=== PATIENT | female | born 1965 | race Two or more races ===

== ENCOUNTER 2020-10-06 16:14 | Emergency (ER) | payer OTHER, MEDICAID ==
[~2020-10-06] VITALS: Ht 152.4 cm; Wt 72.1 kg
[2020-10-06 16:28] VITALS: BP_SYST 120
[2020-10-06 17:09] LABS: BASOPHILS % (AUTO) 0.8 % (0.0-2.0); EOSINOPHILS # (AUTO) 0.1 K/uL (0.0-0.4); EOSINOPHILS % (AUTO) 1.2 % (0.0-4.0); HEMOGLOBIN 7.1 g/dL (12.0-16.0); LYMPHOCYTES # (AUTO) 1.3 K/uL (1.0-5.5); LYMPHOCYTES % (AUTO) 24.9 % (20.5-51.5); MEAN CORPUSCULAR HEMOGLOBIN 34 pg (27-31); MEAN CORPUSCULAR HGB CONC 34 % (32-36); MEAN CORPUSCULAR VOLUME 99 fL (79.0-98.0); MONOCYTES # (AUTO) 0.3 K/uL (0.0-1.0); MONOCYTES % (AUTO) 6.5 % (1.7-9.3); NEUTROPHILS # (AUTO) 3.5 K/uL (1.8-7.7); NEUTROPHILS % (AUTO) 66.6 % (40.0-70.0); PLATELET COUNT (AUTO) 254 K/uL (130-430); RED BLOOD CELL COUNT(AUTO) 2.09 MIL/uL (4.2-6.2); WHITE BLOOD COUNT (AUTO) 5.2 K/uL (4.8-10.8)
[2020-10-06 17:11] LABS: PROTHROMBIN TIME 10.1 SECS (9.5-12.5)
[2020-10-06 17:14] LABS: HEMATOCRIT 20.7 % (36-48)
[2020-10-06 17:20] LABS: RETICULOCYTE COUNT 4.9 % (0.5-1.5)
[2020-10-06 17:38] LABS: CALCIUM 8.5 mg/dL (8.4-11.0); CREATININE 0.86 mg/dL (0.55-1.30); POTASSIUM 3.7 mmol/L (3.5-5.1)
[2020-10-06 17:43] LABS: ALBUMIN 3.4 g/dL (3.4-4.8); TOTAL BILIRUBIN 0.1 mg/dL (0.0-1.0)
[2020-10-06] MEDS ORDERED: FERR236T3 PO (17:48)
[2020-10-07 00:03] VITALS: BP_SYST 98
== END 2020-10-07 00:03 | disposition home or self-care (01) ==
LOC: SED 16:14
DX: D64.9 Anemia, unspecified (principal); Z88.1 Allergy status to other antibiotic agents
CPT/HCPCS: 36415; 36430; 80053; 84703; 85025; 85044; 85610; 85730; 86886; 86900; 86901; 86920; 99285; P9021

== ENCOUNTER 2020-10-09 15:26 | Emergency (ER) | payer OTHER, MEDICAID ==
[~2020-10-09] VITALS: Ht 152.4 cm; Wt 71.2 kg
[~2020-10-09 15:26] MED LIST: FERR236T3 PO
[2020-10-09 15:36] VITALS: BP_SYST 100
[2020-10-09 15:55] LABS: BASOPHILS # (AUTO) 0.1 K/uL (0.0-0.2); BASOPHILS % (AUTO) 0.9 % (0.0-2.0); EOSINOPHILS # (AUTO) 0.1 K/uL (0.0-0.4); EOSINOPHILS % (AUTO) 2.4 % (0.0-4.0); HEMATOCRIT 27.1 % (36-48); HEMOGLOBIN 9.3 g/dL (12.0-16.0); LYMPHOCYTES # (AUTO) 1.8 K/uL (1.0-5.5); LYMPHOCYTES % (AUTO) 30.7 % (20.5-51.5); MEAN CORPUSCULAR HEMOGLOBIN 33 pg (27-31); MEAN CORPUSCULAR HGB CONC 34 % (32-36); MEAN CORPUSCULAR VOLUME 97 fL (79.0-98.0); MONOCYTES # (AUTO) 0.4 K/uL (0.0-1.0); NEUTROPHILS # (AUTO) 3.6 K/uL (1.8-7.7); PLATELET COUNT (AUTO) 322 K/uL (130-430); RED CELL DISTRIBUTION WIDTH 13.9 % (9.0-15.0)
[2020-10-09 16:24] LABS: CALCIUM 8.5 mg/dL (8.4-11.0); CREATININE 0.86 mg/dL (0.55-1.30); POTASSIUM 3.7 mmol/L (3.5-5.1)
[2020-10-09 16:29] LABS: ALBUMIN 3.5 g/dL (3.4-4.8); TOTAL BILIRUBIN 0.1 mg/dL (0.0-1.0)
[2020-10-09 17:54] VITALS: BP_SYST 100
== END 2020-10-09 17:54 | disposition home or self-care (01) ==
LOC: SED 15:26
DX: D64.9 Anemia, unspecified (principal); Z88.5 Allergy status to narcotic agent
CPT/HCPCS: 36415; 80053; 85025; 99283

== ENCOUNTER 2022-08-09 13:44 | Emergency (ER) | payer MEDICAID, OTHER ==
[~2022-08-09] VITALS: Ht 154.9 cm; Wt 72.6 kg
[2022-08-09 14:20] VITALS: BP_SYST 131
--- NOTE | 2022-08-09 14:20 | NUR ---
ER Dr. GARCIA at bedside examining patient.
--- NOTE | 2022-08-09 14:20 | NUR ---
PT BIB SIGNIFICANT OTHER, AMBULATED TO BED 4. PT IS A&OX4, C/O ABDOMINAL PAIN. PT STATES PAIN 4/10. PT STATES PAIN STARTS AT UPPER ABDOMINAL AND RADITATES TO BILATERAL FLANKS. PT STATES SHE HAS A HISTORY OF KIDNEY STONES. PT STATES PT DENIES V/N. PT DENIES PAIN WHEN URINATING. PT STATES LAST BOWEL MOVEMENT WAS TODAY AT 1030. WILL CONTINUE TO MONITOR AND ASSESS.
[2022-08-09] MEDS ORDERED: MAG HYDROX/AL HYDROX/SIMETH 30 ML, DICYCLOMINE HCL 20 MG, LIDOCAINE VISCOUS 2% 15ML (PO... PO ONE ×3 (14:30)
[2022-08-09 14:40] LABS: BILIRUBIN,URINE NEGATIVE (NEGATIVE); BLOOD, URINE NEGATIVE (NEGATIVE); CLARITY/URINE CLEAR (CLEAR); COLOR,URINE YELLOW (YELLOW); GLUCOSE,URINE NEGATIVE (NEGATIVE); KETONES,URINE NEGATIVE (NEGATIVE); LEUKOCYTE ESTERASE ,URINE NEGATIVE (NEGATIVE); NITRITE, URINE NEGATIVE (NEGATIVE); PROTEIN URINE NEGATIVE (NEGATIVE); UROBILINOGEN,URINE 0.2 (0.2-1.0)
[2022-08-09 15:04] LABS: BASOPHILS % (AUTO) 0.6 % (0.0-2.0); EOSINOPHILS # (AUTO) 0.2 K/uL (0.0-0.4); EOSINOPHILS % (AUTO) 2.7 % (0.0-4.0); HEMATOCRIT 36.1 % (36-48); HEMOGLOBIN 12.7 g/dL (12.0-16.0); LYMPHOCYTES # (AUTO) 1.8 K/uL (1.0-5.5); LYMPHOCYTES % (AUTO) 32.2 % (20.5-51.5); MEAN CORPUSCULAR HEMOGLOBIN 34 pg (27-31); MEAN CORPUSCULAR HGB CONC 35 % (32-36); MEAN CORPUSCULAR VOLUME 95 fL (79.0-98.0); MONOCYTES # (AUTO) 0.4 K/uL (0.0-1.0); MONOCYTES % (AUTO) 7.4 % (1.7-9.3); NEUTROPHILS # (AUTO) 3.2 K/uL (1.8-7.7); NEUTROPHILS % (AUTO) 57.1 % (40.0-70.0); PLATELET COUNT (AUTO) 188 K/uL (130-430); RED BLOOD CELL COUNT(AUTO) 3.78 MIL/uL (4.2-6.2); RED CELL DISTRIBUTION WIDTH 12.9 % (9.0-15.0); WHITE BLOOD COUNT (AUTO) 5.6 K/uL (4.8-10.8)
[2022-08-09 15:09] LABS: CALCIUM 9.3 mg/dL (8.4-11.0); CREATININE 0.66 mg/dL (0.55-1.30)
--- NOTE | 2022-08-09 15:10 | NUR ---
PT TAKEN OFF MONITOR AND TRANSFERRED TO CT VIA WHEELCHAIR AT THIS TIME.
[2022-08-09 15:13] LABS: ALBUMIN 3.7 g/dL (3.4-4.8); TOTAL BILIRUBIN 0.2 mg/dL (0.0-1.0)
--- NOTE | 2022-08-09 15:20 | NUR ---
PT RETURNED FROM CT VIA WHEELCHAIR.
--- NOTE | 2022-08-09 16:08 | NUR ---
Dr Flaherty at bedside discussing plan of care.
[2022-08-09] MEDS ORDERED: FAMO-132 PO (16:10)
--- NOTE | 2022-08-09 16:24 | NUR ---
Patient given written and verbal discharge instructions and verbalizes understanding. ER Dr Flaherty discussed with patient the results and treatment provided. Patient in stable condition. ID arm band removed. Rx of Pepcid given. Patient educated on pain management and to follow up with PMD. Pain Scale 0/10. Opportunity for questions provided and answered. Medication side effect fact sheet provided.
[2022-08-09 16:28] VITALS: BP_SYST 103
== END 2022-08-09 16:24 | disposition home or self-care (01) ==
LOC: SED 13:44
DX: K29.00 Acute gastritis without bleeding (principal); R10.13 Epigastric pain; Z88.1 Allergy status to other antibiotic agents; Z79.899 Other long term (current) drug therapy
CPT/HCPCS: 99284; 74176; 80053; 83690; 85025; 36415; 76376; 81003; J2001

== ENCOUNTER 2022-11-15 12:32 | Emergency (ER) | payer MEDICAID ==
[~2022-11-15] VITALS: Ht 152.4 cm; Wt 73.5 kg
[2022-11-15 12:32] VITALS: BP_SYST 150
[~2022-11-15 12:32] MED LIST changes: +FAMO-132 PO
[2022-11-15 13:17] LABS: BASOPHILS % (AUTO) 0.9 % (0.0-2.0); EOSINOPHILS # (AUTO) 0.1 K/uL (0.0-0.4); HEMATOCRIT 40.5 % (36-48); HEMOGLOBIN 13.7 g/dL (12.0-16.0); LYMPHOCYTES # (AUTO) 1.9 K/uL (1.0-5.5); LYMPHOCYTES % (AUTO) 34.9 % (20.5-51.5); MEAN CORPUSCULAR HEMOGLOBIN 33 pg (27-31); MEAN CORPUSCULAR HGB CONC 34 % (32-36); MEAN CORPUSCULAR VOLUME 96 fL (79.0-98.0); MONOCYTES # (AUTO) 0.4 K/uL (0.0-1.0); MONOCYTES % (AUTO) 6.7 % (1.7-9.3); NEUTROPHILS % (AUTO) 55.5 % (40.0-70.0); PLATELET COUNT (AUTO) 222 K/uL (130-430); RED CELL DISTRIBUTION WIDTH 13.1 % (9.0-15.0); WHITE BLOOD COUNT (AUTO) 5.4 K/uL (4.8-10.8)
[2022-11-15 13:30] LABS: ANION GAP 7 (5-15); CALCIUM 9.1 mg/dL (8.4-11.0); CHLORIDE 103 mmol/L (98-107); CREATININE 0.74 mg/dL (0.55-1.30); GFR AFRICAN AMERICAN 104 mL/min (>90); GLUCOSE 94 mg/dL (70-99); UREA NITROGEN, BLOOD 17 mg/dL (8-21)
[2022-11-15 13:36] LABS: ALANINE AMINOTRANSFERASE 27 U/L (12-78); ALBUMIN 4.1 g/dL (3.4-4.8); ASPARTATE AMINOTRANSFERASE 20 U/L (10-37); TOTAL BILIRUBIN 0.4 mg/dL (0.0-1.0)
[2022-11-15] MEDS ORDERED: ALPR0.5T PO (14:23)
[2022-11-15 14:44] VITALS: BP_SYST 150
== END 2022-11-15 14:45 | disposition home or self-care (01) ==
LOC: SED 12:32
DX: F41.9 Anxiety disorder, unspecified (principal); R53.1 Weakness; R20.2 Paresthesia of skin; R06.02 Shortness of breath; Z88.0 Allergy status to penicillin; Z88.1 Allergy status to other antibiotic agents; Z79.899 Other long term (current) drug therapy
CPT/HCPCS: 36415; 71045; 80053; 82550; 84484; 85025; 93005; 99285

== ENCOUNTER 2023-02-05 13:42 | Emergency (ER) | payer MEDICAID ==
[~2023-02-05] VITALS: Ht 152.4 cm; Wt 74.4 kg
[~2023-02-05 13:42] MED LIST changes: +ALPR0.5T PO
[2023-02-05 13:45] VITALS: BP_SYST 108; PULSE 62; RESP 18; TEMP 97.8; O2SAT 98
[2023-02-05 16:16] LABS: BILIRUBIN,URINE NEGATIVE (NEGATIVE); BLOOD, URINE 3+ (NEGATIVE); CLARITY/URINE CLEAR (CLEAR); COLOR,URINE YELLOW (YELLOW); GLUCOSE,URINE NEGATIVE (NEGATIVE); KETONES,URINE NEGATIVE (NEGATIVE); LEUKOCYTE ESTERASE ,URINE NEGATIVE (NEGATIVE); NITRITE, URINE NEGATIVE (NEGATIVE); PROTEIN URINE NEGATIVE (NEGATIVE); UROBILINOGEN,URINE 0.2 (0.2-1.0)
[2023-02-05 16:46] LABS: BACTERIA,URINE RARE /HPF (None Seen); MUCUS,URINE None Seen /LPF (None Seen); WBC,URINE 0-3 /HPF (0-3)
[2023-02-05 17:00] LABS: BASOPHILS % (AUTO) 0.7 % (0.0-2.0); EOSINOPHILS # (AUTO) 0.1 K/uL (0.0-0.4); EOSINOPHILS % (AUTO) 2.1 % (0.0-4.0); HEMOGLOBIN 13.3 g/dL (12.0-16.0); LYMPHOCYTES # (AUTO) 1.5 K/uL (1.0-5.5); LYMPHOCYTES % (AUTO) 30.5 % (20.5-51.5); MEAN CORPUSCULAR HEMOGLOBIN 33 pg (27-31); MEAN CORPUSCULAR HGB CONC 33 % (32-36); MEAN CORPUSCULAR VOLUME 98 fL (79.0-98.0); MONOCYTES # (AUTO) 0.3 K/uL (0.0-1.0); MONOCYTES % (AUTO) 5.6 % (1.7-9.3); NEUTROPHILS # (AUTO) 3.1 K/uL (1.8-7.7); NEUTROPHILS % (AUTO) 61.1 % (40.0-70.0); PLATELET COUNT (AUTO) 214 K/uL (130-430); RED BLOOD CELL COUNT(AUTO) 4.08 MIL/uL (4.2-6.2); RED CELL DISTRIBUTION WIDTH 12.9 % (9.0-15.0); WHITE BLOOD COUNT (AUTO) 5.1 K/uL (4.8-10.8)
[2023-02-05 17:14] LABS: CALCIUM 9.2 mg/dL (8.4-11.0); CREATININE 0.69 mg/dL (0.55-1.30)
[2023-02-05 17:19] LABS: ALBUMIN 4.1 g/dL (3.4-4.8); TOTAL BILIRUBIN 0.4 mg/dL (0.0-1.0)
[2023-02-05] MEDS ORDERED: POLY17PO4 PO (17:29)
[2023-02-05] MEDS ORDERED: KETOROLAC TROMETHAMINE 60 MG/2 ML VIAL IM ONE (17:30)
[2023-02-05] MEDS ORDERED: IBUP-1969 PO ×2 (17:31→19:50)
[2023-02-05] MEDS ORDERED: TAMS-11 PO (19:50)
[2023-02-05] MEDS ORDERED: HYDR-3927 PO (19:50)
[2023-02-06 00:42] VITALS: BP_SYST 119; PULSE 78; RESP 14; TEMP 98.1; O2SAT 98
== END 2023-02-06 00:42 | disposition home or self-care (01) ==
LOC: SED 13:42
DX: K59.00 Constipation, unspecified (principal); N23 Unspecified renal colic; M25.552 Pain in left hip; Z88.0 Allergy status to penicillin; Z88.1 Allergy status to other antibiotic agents; Z88.2 Allergy status to sulfonamides; Z79.899 Other long term (current) drug therapy
CPT/HCPCS: 99285; 74176; 80053; 81000; 85025; 36415; 74021; 76376; 96372; J1885

== ENCOUNTER 2023-02-10 11:41 | Inpatient (IN) | payer MEDICAID ==
[~2023-02-10] VITALS: Ht 152.4 cm; Wt 77.1 kg
[~2023-02-10 11:41] MED LIST changes: +HYDR-3927 PO; +IBUP-1969 PO; +POLY17PO4 PO; +TAMS-11 PO
[2023-02-10 11:53] VITALS: BP_SYST 118; PULSE 92; RESP 18; TEMP 98.3; O2SAT 98
--- NOTE | 2023-02-10 11:59 | NUR ---
RECEIVED PT FROM SHARAN NARAYANAN. PT TRIAGED AND PLACED IN BED 6. PT BIBS FROM HOME WITH C/O BACK AND SIDE PAIN, DENIES URINARY FREQUENCY, HEMITURIA, BUT STATES SHE HAS A HX OF KIDNEY STONES.
--- NOTE | 2023-02-10 12:00 | NUR ---
DR. MICHELLE AT BEDSIDE TO ASSESS PT.
[2023-02-10] MEDS ORDERED: KETOROLAC TROMETHAMINE 30 MG VIAL IVP ONE (12:30)
[2023-02-10] MEDS ORDERED: NACL 0.9% 1,000 ML IV ONE (12:30)
--- NOTE | 2023-02-10 12:39 | NUR ---
# 20 gauge angiocath placed to OAC. Use of asceptic technique. Opsite placed over site. Blood return noted. Blood for lab drawn from site. Flushed with 10 cc of normal saline. No evidence of infiltration noted. Patient tolerated well.
[2023-02-10 12:45] LABS: BILIRUBIN,URINE NEGATIVE (NEGATIVE); BLOOD, URINE 3+ (NEGATIVE); CLARITY/URINE CLEAR (CLEAR); COLOR,URINE YELLOW (YELLOW); GLUCOSE,URINE NEGATIVE (NEGATIVE); KETONES,URINE NEGATIVE (NEGATIVE); LEUKOCYTE ESTERASE ,URINE TRACE (NEGATIVE); NITRITE, URINE NEGATIVE (NEGATIVE); PH,URINE 5.5 (5.0-8.0); PROTEIN URINE 1+ (NEGATIVE); UROBILINOGEN,URINE 0.2 (0.2-1.0)
[2023-02-10 12:45] LABS: BASOPHILS # (AUTO) 0.1 K/uL (0.0-0.2); BASOPHILS % (AUTO) 0.9 % (0.0-2.0); EOSINOPHILS # (AUTO) 0.1 K/uL (0.0-0.4); EOSINOPHILS % (AUTO) 1.8 % (0.0-4.0); HEMATOCRIT 37.8 % (36-48); HEMOGLOBIN 12.5 g/dL (12.0-16.0); LYMPHOCYTES # (AUTO) 1.7 K/uL (1.0-5.5); LYMPHOCYTES % (AUTO) 20.8 % (20.5-51.5); MEAN CORPUSCULAR HEMOGLOBIN 33 pg (27-31); MEAN CORPUSCULAR HGB CONC 33 % (32-36); MEAN CORPUSCULAR VOLUME 98 fL (79.0-98.0); MONOCYTES # (AUTO) 0.6 K/uL (0.0-1.0); NEUTROPHILS # (AUTO) 5.5 K/uL (1.8-7.7); NEUTROPHILS % (AUTO) 68.5 % (40.0-70.0); PLATELET COUNT (AUTO) 206 K/uL (130-430); RED BLOOD CELL COUNT(AUTO) 3.86 MIL/uL (4.2-6.2); RED CELL DISTRIBUTION WIDTH 12.8 % (9.0-15.0); WHITE BLOOD COUNT (AUTO) 8.1 K/uL (4.8-10.8)
[2023-02-10 12:56] LABS: BACTERIA,URINE MODERATE /HPF (None Seen)
[2023-02-10 12:57] LABS: MUCUS,URINE 1+ /LPF (None Seen)
--- NOTE | 2023-02-10 12:57 | NUR ---
PLACED BEDSIDE COMMODE WITH PT FOR BATHROOM USE, PT IS TOO WEAK TO WALK TO RESTROOM
[2023-02-10 13:11] LABS: ALBUMIN 3.8 g/dL (3.4-4.8); CALCIUM 9.1 mg/dL (8.4-11.0); CREATININE 0.93 mg/dL (0.55-1.30); TOTAL BILIRUBIN 0.3 mg/dL (0.0-1.0)
[2023-02-10] MEDS ORDERED: MULT-1117 PO (13:40)
[2023-02-10] MEDS ORDERED: D5/0.45 NS 1,000 ML IV ONE (16:00)
--- NOTE | 2023-02-10 17:00 | NUR ---
Admit bed requested Patient will be admitted to care of . Admitted to MEDICAL SURGICAL unit. Diagnosis KIDNEY STONES Inpatient (Yes or No) YES Observation (Yes or No) NO Orientation concerns or request close to nursing station (Yes or No) NO Covid Status N/A On vent or bipap NO Isolation requirements NONE Needs a sitter NO From Home (Yes or if No enter name of facility) YES Requires Dialysis (Yes or No) NO Med Rec Completed (Yes of No) YES
--- NOTE | 2023-02-10 19:56 | NUR ---
Patient will be admitted to care of [facility]. Admitted to MED SURGE unit. Will go to room 110B. Belongings list completed. Complete and up to date summary report printed. SBAR report to be given at bedside with opportunity for questions.
[2023-02-10 20:05] VITALS: O2SAT 99
--- NOTE | 2023-02-10 20:05 | NUR ---
ADMIT NOTE Received pt from ER to the floor with a diagnosis of KIDNEY STONES. Received report from SHARAN Quinones. Admission process initiated. patient oriented to pain management, safety and call light-teach back done.
--- NOTE | 2023-02-10 20:15 | NUR ---
Initial RN notes Pt AAOx4, VSS, no distress noted. Pt denies pain at this time. IVF infusing L. AC20G clear and patent. Oriented to call light use. Bed low, locked, siderails up x2. To monitor.
[2023-02-10 22:08] VITALS: BP_SYST 97; PULSE 59; RESP 18; TEMP 97.2
--- NOTE | 2023-02-11 00:14 | NUR ---
Sarah GAMEZ Another RN mandie GAMEZ, spoke with MD for pain med order. Order for Toradol 30mg IVP Q4PRN received.
[2023-02-11] MEDS ORDERED: KETOROLAC TROMETHAMINE 30 MG VIAL IVP PRN (00:15)
[2023-02-11 00:28] VITALS: BP_SYST 113; PULSE 62; RESP 14; TEMP 96.8; O2SAT 96
--- NOTE | 2023-02-11 06:15 | NUR ---
Closing notes Pt asleep, easily awakens. No c/o pain or discomfort at this time. Pt voids in commode and straining urine, no stone noted. Call light within reach. To endorse to AM nurse.
[2023-02-11 08:00] VITALS: BP_SYST 112; PULSE 67; RESP 16; TEMP 97.6; O2SAT 97
--- NOTE | 2023-02-11 08:22 | NUR ---
CONSULTATION: REASON FOR CONSULT: KIDNEY STONES CONSULTING PHYSICIAN: Marianela CHANDRA ORDERED BY: Jameel JESSICA DR, NP IS AWARE OF CONSULT AND ALREADY SEEN THE PT [phone]
--- NOTE | 2023-02-11 08:48 | NUR ---
OPENING NOTES: PATIENT IN BED WITH EYES OPENED. RESPONDED TO NAME. PATIENT EXPRESSED CONCERN IN REGARDS TO HEALTH INSURANCE AND WANTING TO SPEAK WITH A [employer]ER.SPOKE WITH QUE FROM CASE MANAGEMENT IN PERSON ABOUT PATIENT CONCERNS. QUE SAID SHE WILL HAVE OLIVIA JOVEL TALK WITH HER. NO S/S OF DISTRESS OR PAIN NOTED. BREATHING IS EVEN AND UNLABORED ON RA. ALL NEEDS MET AT THIS TIME, SAFETY CHECKS MADE AND CALL LIGHT WITHIN REACH.
[2023-02-11] MEDS ORDERED: TAMSULOSIN HCL 0.4 MG CAP PO SCH (09:00)
--- NOTE | 2023-02-11 09:30 | NUR ---
OLIVIA met with patient at bedside per her request. She is asking for an in-network hospital transfer. She wants for her kidney stone to be removed. CM will contact and fax her clinicals to [facility] for further coordination.
[2023-02-11] MEDS ORDERED: ACETAMINOPHEN 325 MG TABLET PO PRN ×2 (10:45→11:30)
[2023-02-11] MEDS ORDERED: NALOXONE HCL 0.4 MG/ML AMP (NARCAN) IVP PRN ×2 (10:45)
[2023-02-11] MEDS ORDERED: HYDROcodone/ACETAMIN 10-325 MG TAB PO PRN (10:45)
[2023-02-11] MEDS ORDERED: HYDROcodone/ACETAMIN 5-325 MG TAB (NORCO/ VICODIN) PO PRN (10:45)
[2023-02-11] MEDS ORDERED: ONDANSETRON HCL 4 MG/2 ML VIAL IVP PRN (10:45)
[2023-02-11] MEDS ORDERED: LORazepam 2 MG/ML VIAL IVP PRN (10:45)
[2023-02-11] MEDS ORDERED: D5/0.45 NS 1,000 ML IV SCH (10:45)
[2023-02-11 12:00] VITALS: BP_SYST 109; PULSE 73; RESP 15; TEMP 98.3; O2SAT 98
[2023-02-11 12:31] VITALS: O2SAT 98
[2023-02-11 12:48] VITALS: BP_SYST 109; PULSE 73; RESP 15; TEMP 98.3; O2SAT 98
--- NOTE | 2023-02-11 13:35 | NUR ---
DISCHARGED PATIENT DISCHARGED HOME WITH ANU. PATIENT VERBALIZED UNDERSTANDING OFF D/C INSTRUCTIONS TO F/U WITH PCP AND UROLOGIST OUTPATIENT WELL MEDICATIONS.
--- NOTE | 2023-02-11 13:48 | NUR ---
CM had faxed clinicals and [facility]. No return phone call. CM left a with patient [phone] advising her of [facility] being the in [facility] to go to next time for services.
[2023-02-12] MEDS ORDERED: MULTIVITAMINS TAB 1 TABLET PO SCH (09:00)
[2023-02-12] MEDS ORDERED: FERROUS GLUCONATE 324 MG TABLET PO SCH (09:00)
== END 2023-02-11 13:40 | disposition home or self-care (01) | DRG 465 ==
LOC: SED 11:41 → SMU 15:59
PROVIDERS: ADMIT Preventive Medicine Preventive Medicine/Occupational Environmental Medicine; ATTEND Preventive Medicine Preventive Medicine/Occupational Environmental Medicine
DX: N13.2 Hydronephrosis with renal and ureteral calculous obstruction (principal); E87.1 Hypo-osmolality and hyponatremia; F41.9 Anxiety disorder, unspecified; Z88.0 Allergy status to penicillin; Z88.1 Allergy status to other antibiotic agents
CPT/HCPCS: 36415; 76376; 80053; 81000; 83690; 85025; 87086; J1885; J7030